=== PATIENT | female | born 1970 | race Caucasian/White ===

== ENCOUNTER 2018-07-09 16:29 | Emergency (ER) | payer SELFPAY ==
[~2018-07-09] VITALS: Ht 144.8 cm; Wt 36.6 kg
[2018-07-09 16:47] VITALS: BP 100/68; PULSE 92; RESP 18; Ht 144.8 cm; Wt 36.6 kg
== END 2018-07-10 01:29 | disposition left against medical advice (07) ==
LOC: E/R 16:29
DX: Z53.21 Procedure and treatment not carried out due to patient leaving prior to being seen by health care provider (principal)
CPT/HCPCS: 93005